=== PATIENT | female | born 1955 | race Caucasian/White ===

== ENCOUNTER 2019-11-03 10:51 | Emergency (ER) | payer SELFPAY ==
[~2019-11-03] VITALS: Ht 167.6 cm; Wt 85.7 kg
[2019-11-03 11:15] VITALS: BP 133/76; Ht 167.6 cm; Wt 85.7 kg
== END 2019-11-03 14:08 | disposition home or self-care (01) ==
LOC: ED 10:51
DX: M25.461 Effusion, right knee (principal); M19.90 Unspecified osteoarthritis, unspecified site

== ENCOUNTER 2019-11-07 13:52 | Emergency (ER) | payer SELFPAY ==
[~2019-11-07] VITALS: Ht 167.6 cm; Wt 87.1 kg
[2019-11-07 13:57] VITALS: Ht 167.6 cm; Wt 87.1 kg
[2019-11-07 15:20] VITALS: BP 125/68
== END 2019-11-07 15:20 | disposition home or self-care (01) ==
LOC: ED 13:52
DX: M25.561 Pain in right knee (principal)